=== PATIENT | female | born 1990 | race Two or more races ===

== ENCOUNTER 2022-11-10 21:05 | Emergency (ER) | payer OTHER ==
[~2022-11-10] VITALS: Ht 152.4 cm; Wt 45.4 kg
[2022-11-11 00:34] VITALS: BP 104/75
== END 2022-11-11 00:33 | disposition home or self-care (01) ==
LOC: ER 21:05
DX: S09.90XA Unspecified injury of head, initial encounter (principal); W01.0XXA Fall on same level from slipping, tripping and stumbling without subsequent striking against object, initial encounter; Y93.89 Activity, other specified; Y92.89 Other specified places as the place of occurrence of the external cause; Y99.8 Other external cause status
CPT/HCPCS: 70450